=== PATIENT | male | born 1940 | race Caucasian/White ===

== ENCOUNTER → 2023-09-15 10:37 | Outpatient (REF) | payer OTHER, MEDICARE, SELFPAY ==
[2023-09-15 11:02] LABS: % Basophils 0.6 % (0-2); % Eosinophils 2.7 % (0-6); % Lymphocytes 11.8 % (20.5-51.1); % Monocytes 8.1 % (1.7-9.3); % Neutrophils 75.8 % (42.2-75.2); Absolute Eosinophils 0.1 10^3/uL (0-0.7); Absolute Immature Granulocytes 0.1 10^3/uL (0-0.05); Absolute Lymphocytes 0.6 10^3/uL (1.2-3.4); Absolute Monocytes 0.4 10^3/uL (0.1-0.6); Absolute Neutrophils 3.9 10^3/uL (1.4-6.5); Hematocrit 25.1 % (39.0-52.0); Hemoglobin 7.9 g/dL (13.0-18.0); Mean Corp Hgb Conc. 31.5 g/dL (33.0-37.0); Mean Corpuscular Volume 92.3 fL (80.0-94.0); Mean Platelet Volume 10.7 fL (7.4-10.4); Nucleated Red Blood Cells % 0 % (-); Platelet Count 164 10^3/uL (130-400); Red Blood Cell Count 2.72 10^6/uL (4.70-6.10); Red Cell Dist. Width 16.7 % (11.5-14.5); White Blood Cell Count 5.2 10^3/uL (4.8-10.8)
[2023-09-15 11:16] LABS: INR 2.14; PT 24.1 Sec (11.4-14.6)
[2023-09-15 12:36] LABS: Blood Urea Nitrogen 47 mg/dl (9-20); Calcium 8.8 mg/dl (8.4-10.2); Carbon Dioxide 26 mmol/L (22-30); Chloride 102 mmol/L (98-107); Glucose 94 mg/dl (70-99); Potassium 3.9 mmol/L (3.5-5.1); Sodium 137 mmol/L (135-145); eGFR 23.43
== END ==
LOC: OLABP 10:37
PROVIDERS: ATTENDING PHYSICIAN Family Medicine
DX: J96.01 Acute respiratory failure with hypoxia (principal); I50.33 Acute on chronic diastolic (congestive) heart failure; J81.1 Chronic pulmonary edema; B95.2 Enterococcus as the cause of diseases classified elsewhere; I48.21 Permanent atrial fibrillation; N17.9 Acute kidney failure, unspecified; N18.4 Chronic kidney disease, stage 4 (severe); D64.9 Anemia, unspecified; J44.9 Chronic obstructive pulmonary disease, unspecified
CPT/HCPCS: 36415; 80048; 85025; 85610

== ENCOUNTER → 2023-09-17 10:04 | Outpatient (REF) | payer OTHER, MEDICARE, SELFPAY ==
[2023-09-17 10:42] LABS: % Basophils 0.7 % (0-2); % Eosinophils 1.8 % (0-6); % Immature Granulocytes 0.7 % (0-0.5); % Lymphocytes 12.6 % (20.5-51.1); % Monocytes 7.3 % (1.7-9.3); % Neutrophils 76.9 % (42.2-75.2); Absolute Eosinophils 0.1 10^3/uL (0-0.7); Absolute Lymphocytes 0.7 10^3/uL (1.2-3.4); Absolute Monocytes 0.4 10^3/uL (0.1-0.6); Absolute Neutrophils 4.4 10^3/uL (1.4-6.5); Hematocrit 26.9 % (39.0-52.0); Hemoglobin 8.4 g/dL (13.0-18.0); INR 2.16; Mean Corp Hgb Conc. 31.2 g/dL (33.0-37.0); Mean Corpuscular Hgb 29.4 pg (27.0-31.0); Mean Corpuscular Volume 94.1 fL (80.0-94.0); Mean Platelet Volume 10.7 fL (7.4-10.4); Nucleated Red Blood Cells % 0 % (-); Platelet Count 174 10^3/uL (130-400); Red Blood Cell Count 2.86 10^6/uL (4.70-6.10); White Blood Cell Count 5.7 10^3/uL (4.8-10.8)
[2023-09-17 10:56] LABS: Blood Urea Nitrogen 47 mg/dl (9-20); Calcium 8.9 mg/dl (8.4-10.2); Carbon Dioxide 24 mmol/L (22-30); Chloride 104 mmol/L (98-107); Glucose 102 mg/dl (70-99); Potassium 4.2 mmol/L (3.5-5.1); Sodium 141 mmol/L (135-145); eGFR 19.74
== END ==
LOC: OLABP 10:04
PROVIDERS: ATTENDING PHYSICIAN Family Medicine
DX: J96.01 Acute respiratory failure with hypoxia (principal); I50.33 Acute on chronic diastolic (congestive) heart failure; J81.1 Chronic pulmonary edema; B95.2 Enterococcus as the cause of diseases classified elsewhere; I48.21 Permanent atrial fibrillation; N17.9 Acute kidney failure, unspecified; N18.4 Chronic kidney disease, stage 4 (severe); D64.9 Anemia, unspecified; J44.9 Chronic obstructive pulmonary disease, unspecified
CPT/HCPCS: 36415; 80048; 85025; 85610

== ENCOUNTER → 2023-09-20 12:09 | Outpatient (REF) | payer OTHER, MEDICARE, SELFPAY ==
[2023-09-20 13:01] LABS: % Eosinophils 2.2 % (0-6); % Immature Granulocytes 0.8 % (0-0.5); % Lymphocytes 14.4 % (20.5-51.1); % Monocytes 8.9 % (1.7-9.3); % Neutrophils 72.7 % (42.2-75.2); Absolute Basophils 0.1 10^3/uL (0-0.2); Absolute Eosinophils 0.1 10^3/uL (0-0.7); Absolute Lymphocytes 0.7 10^3/uL (1.2-3.4); Absolute Monocytes 0.5 10^3/uL (0.1-0.6); Absolute Neutrophils 3.7 10^3/uL (1.4-6.5); Hemoglobin 8.3 g/dL (13.0-18.0); Mean Corp Hgb Conc. 30.7 g/dL (33.0-37.0); Mean Corpuscular Hgb 28.8 pg (27.0-31.0); Mean Corpuscular Volume 93.8 fL (80.0-94.0); Mean Platelet Volume 10.2 fL (7.4-10.4); Nucleated Red Blood Cells % 0 % (-); Platelet Count 196 10^3/uL (130-400); Red Blood Cell Count 2.88 10^6/uL (4.70-6.10); Red Cell Dist. Width 17.4 % (11.5-14.5); White Blood Cell Count 5.1 10^3/uL (4.8-10.8)
[2023-09-20 13:04] LABS: INR 1.75; PT 20.3 Sec (11.4-14.6)
[2023-09-20 13:10] LABS: ALT (SGPT) 14 U/L (0-50); AST (SGOT) 18 U/L (17-59); Albumin 3.2 g/dl (3.5-5.0); Alkaline Phosphatase 60 U/L (38-126); Blood Urea Nitrogen 41 mg/dl (9-20); Calcium 8.9 mg/dl (8.4-10.2); Carbon Dioxide 23 mmol/L (22-30); Chloride 105 mmol/L (98-107); Glucose 92 mg/dl (70-99); Potassium 4.8 mmol/L (3.5-5.1); Sodium 139 mmol/L (135-145); Total Bilirubin 0.7 mg/dl (0.2-1.3); Total Protein 5.6 g/dl (6.3-8.2); eGFR 19.74
== END ==
LOC: OLABP 12:09
PROVIDERS: ATTENDING PHYSICIAN Family Medicine
DX: I48.21 Permanent atrial fibrillation (principal); N17.9 Acute kidney failure, unspecified; I50.33 Acute on chronic diastolic (congestive) heart failure; J96.01 Acute respiratory failure with hypoxia; N18.4 Chronic kidney disease, stage 4 (severe); D64.9 Anemia, unspecified; J44.9 Chronic obstructive pulmonary disease, unspecified
CPT/HCPCS: 36415; 80053; 85025; 85610

== ENCOUNTER → 2023-09-22 09:40 | Outpatient (REF) | payer OTHER, MEDICARE, SELFPAY ==
[2023-09-22 10:08] LABS: INR 2.33; PT 25.8 Sec (11.4-14.6)
== END ==
LOC: OLABP 09:40
PROVIDERS: ATTENDING PHYSICIAN Family Medicine
DX: J96.01 Acute respiratory failure with hypoxia (principal); I50.33 Acute on chronic diastolic (congestive) heart failure; J81.1 Chronic pulmonary edema; B95.2 Enterococcus as the cause of diseases classified elsewhere; I48.21 Permanent atrial fibrillation; N17.9 Acute kidney failure, unspecified; N18.4 Chronic kidney disease, stage 4 (severe); D64.9 Anemia, unspecified; J44.9 Chronic obstructive pulmonary disease, unspecified
CPT/HCPCS: 36415; 85610

== ENCOUNTER → 2023-09-24 12:04 | Outpatient (REF) | payer OTHER, MEDICARE, SELFPAY ==
[2023-09-24 12:51] LABS: INR 3.07; PT 31.7 Sec (11.4-14.6)
== END ==
LOC: OLABP 12:04
PROVIDERS: ATTENDING PHYSICIAN Family Medicine
DX: J96.01 Acute respiratory failure with hypoxia (principal); I50.33 Acute on chronic diastolic (congestive) heart failure; J81.1 Chronic pulmonary edema; B95.2 Enterococcus as the cause of diseases classified elsewhere; I48.21 Permanent atrial fibrillation; N17.9 Acute kidney failure, unspecified; N18.4 Chronic kidney disease, stage 4 (severe); D64.9 Anemia, unspecified; J44.9 Chronic obstructive pulmonary disease, unspecified
CPT/HCPCS: 36415; 85610

== ENCOUNTER → 2023-09-27 11:58 | Outpatient (REF) | payer OTHER, MEDICARE, SELFPAY ==
[2023-09-27 12:34] LABS: INR 3.48
[2023-09-27 12:52] LABS: % Basophils 1.3 % (0-2); % Eosinophils 1.7 % (0-6); % Immature Granulocytes 0.8 % (0-0.5); % Lymphocytes 15.3 % (20.5-51.1); % Neutrophils 70.9 % (42.2-75.2); Absolute Basophils 0.1 10^3/uL (0-0.2); Absolute Eosinophils 0.1 10^3/uL (0-0.7); Absolute Lymphocytes 0.8 10^3/uL (1.2-3.4); Absolute Monocytes 0.5 10^3/uL (0.1-0.6); Absolute Neutrophils 3.8 10^3/uL (1.4-6.5); Hematocrit 27.7 % (39.0-52.0); Hemoglobin 8.5 g/dL (13.0-18.0); Mean Corp Hgb Conc. 30.7 g/dL (33.0-37.0); Mean Corpuscular Hgb 29.4 pg (27.0-31.0); Mean Corpuscular Volume 95.8 fL (80.0-94.0); Mean Platelet Volume 10.5 fL (7.4-10.4); Nucleated Red Blood Cells % 0 % (-); Platelet Count 202 10^3/uL (130-400); Red Blood Cell Count 2.89 10^6/uL (4.70-6.10); Red Cell Dist. Width 16.8 % (11.5-14.5); White Blood Cell Count 5.3 10^3/uL (4.8-10.8)
[2023-09-27 12:55] LABS: ALT (SGPT) 15 U/L (0-50); AST (SGOT) 21 U/L (17-59); Albumin 3.3 g/dl (3.5-5.0); Alkaline Phosphatase 63 U/L (38-126); Blood Urea Nitrogen 30 mg/dl (9-20); Calcium 8.5 mg/dl (8.4-10.2); Carbon Dioxide 23 mmol/L (22-30); Chloride 109 mmol/L (98-107); Glucose 82 mg/dl (70-99); Potassium 4.4 mmol/L (3.5-5.1); Sodium 139 mmol/L (135-145); Total Bilirubin 0.5 mg/dl (0.2-1.3); Total Protein 5.8 g/dl (6.3-8.2)
== END ==
LOC: OLABP 11:58
PROVIDERS: ATTENDING PHYSICIAN Family Medicine
DX: J96.01 Acute respiratory failure with hypoxia (principal); I50.33 Acute on chronic diastolic (congestive) heart failure; J81.1 Chronic pulmonary edema; B95.2 Enterococcus as the cause of diseases classified elsewhere; I48.21 Permanent atrial fibrillation; N17.9 Acute kidney failure, unspecified; N18.4 Chronic kidney disease, stage 4 (severe); D64.9 Anemia, unspecified; J44.9 Chronic obstructive pulmonary disease, unspecified
CPT/HCPCS: 36415; 80053; 85025; 85610

== ENCOUNTER → 2023-09-30 11:07 | Outpatient (REF) | payer OTHER, MEDICARE, SELFPAY ==
[2023-09-30 11:32] LABS: PT 27.3 Sec (11.4-14.6)
== END ==
LOC: OLABP 11:07
PROVIDERS: ATTENDING PHYSICIAN Family Medicine
DX: J96.01 Acute respiratory failure with hypoxia (principal); I50.33 Acute on chronic diastolic (congestive) heart failure; J81.1 Chronic pulmonary edema; B95.2 Enterococcus as the cause of diseases classified elsewhere; I48.21 Permanent atrial fibrillation; N17.9 Acute kidney failure, unspecified; N18.4 Chronic kidney disease, stage 4 (severe); D64.9 Anemia, unspecified; J44.9 Chronic obstructive pulmonary disease, unspecified
CPT/HCPCS: 36415; 85610

== ENCOUNTER → 2023-10-04 09:07 | Outpatient (REF) | payer OTHER, MEDICARE, SELFPAY ==
[2023-10-04 10:01] LABS: ALT (SGPT) 13 U/L (0-50); AST (SGOT) 19 U/L (17-59); Albumin 3.3 g/dl (3.5-5.0); Alkaline Phosphatase 59 U/L (38-126); Blood Urea Nitrogen 32 mg/dl (9-20); Carbon Dioxide 26 mmol/L (22-30); Chloride 105 mmol/L (98-107); Glucose 93 mg/dl (70-99); Potassium 4.1 mmol/L (3.5-5.1); Sodium 141 mmol/L (135-145); Total Bilirubin 0.6 mg/dl (0.2-1.3); Total Protein 5.8 g/dl (6.3-8.2); eGFR 20.55
[2023-10-04 10:08] LABS: % Basophils 1.3 % (0-2); % Eosinophils 0.8 % (0-6); % Immature Granulocytes 0.8 % (0-0.5); % Lymphocytes 14.6 % (20.5-51.1); % Neutrophils 72.5 % (42.2-75.2); Absolute Basophils 0.1 10^3/uL (0-0.2); Absolute Lymphocytes 0.8 10^3/uL (1.2-3.4); Absolute Monocytes 0.5 10^3/uL (0.1-0.6); Absolute Neutrophils 3.8 10^3/uL (1.4-6.5); Hemoglobin 9.2 g/dL (13.0-18.0); Mean Corp Hgb Conc. 30.7 g/dL (33.0-37.0); Mean Corpuscular Hgb 28.7 pg (27.0-31.0); Mean Corpuscular Volume 93.5 fL (80.0-94.0); Mean Platelet Volume 10.2 fL (7.4-10.4); Nucleated Red Blood Cells % 0 % (-); Platelet Count 200 10^3/uL (130-400); Red Blood Cell Count 3.21 10^6/uL (4.70-6.10); Red Cell Dist. Width 16.3 % (11.5-14.5); White Blood Cell Count 5.2 10^3/uL (4.8-10.8)
[2023-10-04 10:24] LABS: INR 2.23; PT 24.6 Sec (11.4-14.6)
== END ==
LOC: OLABP 09:07
PROVIDERS: ATTENDING PHYSICIAN Family Medicine
DX: J96.01 Acute respiratory failure with hypoxia (principal); I50.33 Acute on chronic diastolic (congestive) heart failure; J81.1 Chronic pulmonary edema; B95.2 Enterococcus as the cause of diseases classified elsewhere; I48.21 Permanent atrial fibrillation; N17.9 Acute kidney failure, unspecified; N18.4 Chronic kidney disease, stage 4 (severe); D64.9 Anemia, unspecified; J44.9 Chronic obstructive pulmonary disease, unspecified
CPT/HCPCS: 36415; 80053; 85025; 85610

== ENCOUNTER → 2023-10-12 11:00 | Outpatient (REF) | payer MEDICARE, SELFPAY ==
[2023-10-12 19:23] LABS: % Basophils 0.5 % (0-2); % Eosinophils 0.2 % (0-6); % Immature Granulocytes 0.8 % (0-0.5); % Lymphocytes 4.8 % (20.5-51.1); % Monocytes 5.6 % (1.7-9.3); % Neutrophils 88.1 % (42.2-75.2); Absolute Basophils 0.1 10^3/uL (0-0.2); Absolute Immature Granulocytes 0.1 10^3/uL (0-0.05); Absolute Lymphocytes 0.6 10^3/uL (1.2-3.4); Absolute Monocytes 0.7 10^3/uL (0.1-0.6); Absolute Neutrophils 11.2 10^3/uL (1.4-6.5); Hematocrit 34.7 % (39.0-52.0); Hemoglobin 10.9 g/dL (13.0-18.0); Mean Corp Hgb Conc. 31.4 g/dL (33.0-37.0); Mean Corpuscular Hgb 28.5 pg (27.0-31.0); Mean Corpuscular Volume 90.6 fL (80.0-94.0); Mean Platelet Volume 10.3 fL (7.4-10.4); Nucleated Red Blood Cells % 0 % (-); Platelet Count 266 10^3/uL (130-400); Red Blood Cell Count 3.83 10^6/uL (4.70-6.10); White Blood Cell Count 12.7 10^3/uL (4.8-10.8)
[2023-10-12 19:34] LABS: INR 1.57; PT 18.9 Sec (11.4-14.6)
[2023-10-12 19:44] LABS: Intact PTH 86.6 pg/ml (13.6-85.8)
[2023-10-12 19:45] LABS: Calcium 9.3 mg/dl (8.4-10.2); Iron 36 ug/dl (49-181); Protein/creatinine Ratio 0.5; Urine Protein 62 mg/dl
[2023-10-12 19:50] LABS: Microalbumin, Random Urine 12.9 mg/dl (0.6-1.7); Microalbumin/creatinine Ratio 100.1 mg/g
[2023-10-12 19:54] LABS: Percent Saturation 11 % (20-50); Total Iron Binding Capacity 327 ug/dl (261-462)
[2023-10-12 20:09] LABS: Urine Albumin 1+ (Neg - Trace); Urine Bilirubin Negative (Negative); Urine Character Clear (Clear); Urine Color Yellow; Urine Glucose Negative (Negative); Urine Ketone Negative (Negative); Urine Leukocyte Trace (Negative); Urine Nitrite Negative (Negative); Urine Occult Blood Negative (Negative); Urine Urobilinogen Negative (Neg - 1+)
[2023-10-12 20:50] LABS: Urine Bacteria Few (Negative); Urine Red Blood Cell 0-2 /HPF (0-2); Urine Yeast Few (Negative)
== END ==
LOC: CLAB 11:00
PROVIDERS: ATTENDING PHYSICIAN Internal Medicine
DX: I48.21 Permanent atrial fibrillation (principal); N18.32 Chronic kidney disease, stage 3b; R26.2 Difficulty in walking, not elsewhere classified; J81.1 Chronic pulmonary edema; I10 Essential (primary) hypertension; D68.69 Other thrombophilia; N18.4 Chronic kidney disease, stage 4 (severe)
CPT/HCPCS: 36415; 81003; 81015; 82043; 82570; 82728; 83540; 83550; 83970; 84156; 85025; 85610

== ENCOUNTER 2023-10-28 23:55 | Inpatient (IN) | payer MEDICARE, SELFPAY ==
[2023-10-27] VITALS (7 sets, daily range): BP systolic 98–140; BP diastolic 50–62; BMI 19.8
--- NOTE | 2023-10-27 18:19 | ED.GENMED ---
History of Present Illness
General
Chief Complaint: Breathing Problem
Source: patient
Exam Limitations: none
Time Seen by Provider: 10/27/23 17:58
Travel History
Have you had any contact with someone who has COVID-19?: No
Do you have any symptoms of coronavirus? Fever > 100 degrees, chills, cough, shortness of breath, sore throat, loss of taste or smell, muscle aches, or headache?: No
History of Present Illness
History of Present Illness:
This is a 83 year old male that is brought in by family with c/o Low pulse ox. Family states that he went to the PCP office and in the waiting room they tested his Pulse ox and it was 87% on room air. States that the PCP would not see the patient
and told him to come to the ER. State that he was just discharged from [facility] on Oct 04. State that he is always SOB and now he has not will to live. Patient states that he wants Hospice care. States that he is normally round 87%-92% on room
air. States that he is SOB and has diarrhea. Family states that he is unable to cook for himself. . Denies any fever, chills, cehst pain, abd pain, nausea, vomiting, headache, dizziness, urinary burning.
Past History
Past History
ED Past Medical History: Arrthythmia, CAD, Cancer (basal cell skin cancer), CHF, COPD, CVA (Denies weakness), GERD, HTN and Other (Endocarditis, Ulcers)
ED Past Surgical History: Cardiac (Pacemaker, cardiac valve surgery, CABG X 3), Cholecystectomy and Tonsilectomy
Social History
Tobacco: Former smoker
Alcohol: None
Drug: None
Personal:
Living: alone
Employment: Other
Family History
Family History: Other
Review of Systems
Review of Systems
All Other Systems: ROS reviewed and negative except as documented in HPI and ROS
Constitutional: Reports no symptoms; Denies fever or chills
EENT: Reports no symptoms
Respiratory: Reports trouble breathing; Denies cough
Cardiac: Reports no symptoms; Denies chest pain
ABD/GI: Reports diarrhea; Denies abdominal pain, nausea or vomiting
: Reports no symptoms; Denies dysuria, frequency or urgency
Musculoskeletal: Reports no symptoms
Skin: Reports no symptoms
Neurological: Reports no symptoms; Denies dizzy or headache
Psychiatric: Reports no symptoms
Phy Exam
General Physical Exam
General Presentation: mild distress
General age: appears stated age
General Skin: warm and dry
General Habitus: elderly
General Mental: alert
General Hydration: dry mucous membranes
ENT Exam
ENT Exam: TM's normal, pharynx normal and neck supple
Eye Exam
Eye Exam: EOMI
Cardiovascular Exam
Cardiovascular Exam: regular rate/rhythm, no edema and normal peripheral pulses
Pulmonary Exam
Pulmonary Exam: no respiratory distress, no rales, chest non tender, no crackles, no rhonchi, no wheezing, no cough and decreased breath sounds (at bases)
Gastrointestinal Exam
Gastrointestinal Exam: normal bowel sounds, non tender, soft, no organomegaly, no pulsatile mass and non distended
Musculoskeletal Exam
Musculoskeletal Exam: full ROM and no edema
Skin Exam
Skin Exam: normal color, warm/dry, no rash and no petechia
Psychiatric Exam
Psychiatric Exam: normal mood/affect
Scores
Heart Failure Risk
Heart Failure Risk Score: Yes
History of Stroke or TIA: Yes
History of intubation for respiratory distress: No
Heart rate on ED arrival >/= 110: No
SaO2 <90% on arrival on room air: Yes
HR >/=110 during 3min walk test (or too ill to perform test): Yes
ECG has acute ischemic changes: No
Urea >/=12mmol/L (BUN 33.6mg/dL): Yes
Serum CO2>/=35mmol/L: No
Troponin I or T elevated to NE Level (0.4mg/dL): Yes
NT-proBNP >/=5,000ng/L (5,000pg/ml): Yes
HF Risk Score: 8
Admission Status: VERY HIGH RISK 81.2% Consider admission to hospital
Course
Orders/Labs/Results
Orders:
Orders
10/27/23 18:18
Case Management Consult ONCE
Case Management Consult: Hospice
Hospice: Evaluation and treat
CR Chest - 2 Views Urgent
Comment:
Reason For Exam: SOB
10/27/23 18:25
Complete Blood Count/With Diff Urgent
Comprehensive Metabolic Panel Urgent
NT-proBNP Urgent
Troponin I Urgent
10/27/23 18:30
Electrocardiogram (*1) Urgent
Reason for Study: Shortness of Breath
EKG- Treatment ONCE
10/27/23 18:38
Prothrombin Time Urgent
Abnormal Lab Results
10/27/23 10/27/23
18:25 18:38
WBC 19.4 H 10^3/uL
(4.8-10.8)
RBC 4.25 L 10^6/uL
(4.70-6.10)
Hgb 11.7 L g/dL
(13.0-18.0)
Hct 37.1 L %
(39.0-52.0)
MCHC 31.5 L g/dL
(33.0-37.0)
RDW 16.0 H %
(11.5-14.5)
Abs Immat Gran (auto) 0.6 H 10^3/uL
(0-0.05)
Absolute Neuts (auto) 16.7 H 10^3/uL
(1.4-6.5)
Absolute Monos (auto) 0.7 H 10^3/uL
(0.1-0.6)
Immature Gran % 3.3 H %
(0-0.5)
Neutrophils % 86.2 H %
(42.2-75.2)
Lymphocytes % 6.1 L %
(20.5-51.1)
PT 26.5 H Sec
(11.4-14.6)
BUN 78 H mg/dl
(9-20)
Creatinine 3.7 H mg/dL
(0.7-1.3)
Glucose 154 H mg/dl
(70-99)
Calcium 10.4 H mg/dl
(8.4-10.2)
Troponin I 0.173 H* ng/ml
10/27/23 18:25
10/27/23 18:25
Leukocytosis, H/H slightly low. Chronic renal failure (told stage 4 kidney disease) Glucose nonfasting. Calcium slightly elevated. Troponin 0.173 which is consistent with prior labs. PT 26.5 with INR 2.40, Pro-BNP 10,600
Vital Signs
Initial and Last Documented VS:
Initial Vital Signs
Temp Pulse Resp BP Pulse Ox
97.0 F 77 18 120/55 89
10/27/23 16:04 10/27/23 16:04 10/27/23 16:04 10/27/23 16:04 10/27/23 16:04
Last Documented Vital Signs
Temp Pulse Resp BP Pulse Ox
97.0 F 77 18 120/61 95
10/27/23 16:04 10/27/23 16:04 10/27/23 16:04 10/27/23 20:06 10/27/23 20:06
MDM/Problems Addressed
Differential Diagnosis Includes:
CHF, COPD,
MDM/Problems Addressed:
This is a 83 year old male that comes in from the PCP office with c/o SOB. States that he would like to be put on Hospice. Family state that he was discharged from [facility] on Oct 04. States that he has been SOB and he doesn't have the will to
live. Patient is requesting Hospice. Patient went to the PCP office today and his pulse ox in the Waiting room was 87% so they would not see patient and told him to come to the ER.
Will get labs, chest x-ray and consulted Case Management to start the Hospice process.
Chronic conditions affecting care: CAD and COPD
Acute Exacerbation and/or Progression of Chronic Illness: CAD and COPD
*Radiology
Radiology exam reviewed: radiology read reviewed (CHEST- Small bilateral pleural effusions. Parenchymal opacities in the bilateral lung bases may represent atelectasis, pulmonary edema or Pneumonia)
*Pulse Oximetry
Patient hypoxic: yes
*EKG
Interpreted by ED Provider?: Yes
Heart Rate: 70
Rate: normal
Rhythm: ventricular paced
[place]: right axis deviation
*Still Operator Gin Interpretation
Rate: Still Operator Gin- N/A
*Critical Care Note
Total Time (30-74mins, 75-104mins- exclusive of procedures): Not Applicable
ED Attending Note
-
Portions of this chart may have been created with voice recognition software.� Occasional wrong word or��sound alike� substitutions may have occurred due to the inherent limitations of voice recognition software.
Discharge Plan
Departure
Patient Disposition: Admit
Date of Disposition: 10/27/23
Time of Disposition: 21:05
Admit to: Med/Surg
Presentation/result/management discussed w/ accepting MD/DO: Hospitalist
Patient with high blood pressure during this ER visit?: No
Condition: Good
Covid-19: Not Applicable
Discharge Problem:
SOB (shortness of breath), Pleural effusion, bilateral, Pneumonia
Prescriptions:
No Action
allopurinol 100 mg Tablet
100 mg PO Q48H Qty: 0 0RF
allopurinol 100 mg Tablet
200 mg PO Q48H Qty: 0 0RF
B-complex with vitamin C Tablet
1 tab PO QPM Qty: 14 0RF
Fiber-Tabs 625 mg Tablet
625 mg PO BID Qty: 0 0RF
multivitamin with folic acid [Tab-A-Lawrence] 400 mcg Tablet
1 tab PO DAILY Qty: 0 0RF
pantoprazole 40 mg Tablet,Delayed Release (Dr/Ec)
40 mg PO BID Qty: 0 0RF
cholecalciferol (vitamin D3) 25 mcg (1,000 unit) Tablet
1,000 unit PO DAILY Qty: 0 0RF
isosorbide mononitrate 30 mg Tablet Extended Release 24 Hr
30 mg PO DAILY Qty: 0 0RF
warfarin 2.5 mg tablet
2.5 mg PO Q48H
warfarin 2.5 mg tablet
5 mg PO Q48H
hydralazine 10 mg tablet
10 mg PO TID
torsemide 20 mg tablet
20 mg PO DAILY
potassium chloride 20 mEq tablet,ER particles/crystals
20 meq PO BID@0800,1600
famotidine 20 mg tablet
20 mg PO HS PRN (Reason: gi issues)
ferrous sulfate [FeroSul] 325 mg (65 mg iron) tablet
325 mg PO DAILY
Referrals:
UNKNOWN - PT DOES,NOT KNOW [Unknown Provider] -
Interventions
Interventions:
*Risk Screen - Suicide Last Done: 10/27/23 16:04
*General Assessment Last Done: 10/27/23 16:04
*Neglect/Abuse Screening Last Done: 10/27/23 16:04
ED- Fall Risk Assessment Last Done: 10/27/23 18:10
*ED COVID-19 Vaccine History Last Done: 10/27/23 18:10
ED- Cardiac Assessment Last Done: 10/27/23 18:10
ED- Pulmonary Assessment Last Done: 10/27/23 18:10
--- NOTE | 2023-10-27 18:33 | CM ---
CM met with patient and family in room. Patient lives alone in a elevator accessed apartment. Patient was recently released from [facility] and discharged with [facility]N. Patient is requesting hospice evaluation. Patient is agreeable to Hospice referral.
CM sent referral via [facility] and updated account manager via TT.
PCP: Dr. Gloria
PLAN: Hospice evaluation
[2023-10-27 18:37] LABS: % Basophils 0.5 % (0-2); % Eosinophils 0.4 % (0-6); % Immature Granulocytes 3.3 % (0-0.5); % Lymphocytes 6.1 % (20.5-51.1); % Monocytes 3.5 % (1.7-9.3); % Neutrophils 86.2 % (42.2-75.2); Absolute Basophils 0.1 10^3/uL (0-0.2); Absolute Eosinophils 0.1 10^3/uL (0-0.7); Absolute Immature Granulocytes 0.6 10^3/uL (0-0.05); Absolute Lymphocytes 1.2 10^3/uL (1.2-3.4); Absolute Monocytes 0.7 10^3/uL (0.1-0.6); Absolute Neutrophils 16.7 10^3/uL (1.4-6.5); Hematocrit 37.1 % (39.0-52.0); Hemoglobin 11.7 g/dL (13.0-18.0); Mean Corp Hgb Conc. 31.5 g/dL (33.0-37.0); Mean Corpuscular Hgb 27.5 pg (27.0-31.0); Mean Corpuscular Volume 87.3 fL (80.0-94.0); Mean Platelet Volume 9.8 fL (7.4-10.4); Nucleated Red Blood Cells % 0 % (-); Platelet Count 398 10^3/uL (130-400); Red Blood Cell Count 4.25 10^6/uL (4.70-6.10); White Blood Cell Count 19.4 10^3/uL (4.8-10.8)
[2023-10-27 18:46] LABS: ALT (SGPT) 15 U/L (0-50); AST (SGOT) 25 U/L (17-59); Alkaline Phosphatase 92 U/L (38-126); Blood Urea Nitrogen 78 mg/dl (9-20); Calcium 10.4 mg/dl (8.4-10.2); Carbon Dioxide 23 mmol/L (22-30); Chloride 106 mmol/L (98-107); Estimated Creatinine Clearance 13 ml/min; Glucose 154 mg/dl (70-99); Sodium 138 mmol/L (135-145); Total Bilirubin 0.8 mg/dl (0.2-1.3); Total Protein 7.5 g/dl (6.3-8.2); eGFR 15.34
[2023-10-27 18:54] LABS: PT 26.5 Sec (11.4-14.6)
[2023-10-27 19:06] LABS: NT-proBNP 10600 pg/ml; Troponin I 0.173 ng/ml
[2023-10-27] MEDS: MAXIPIME 1000 MG IV (21:14)
[2023-10-27] MEDS: LASIX 20 MG IV (21:24)
--- NOTE | 2023-10-27 21:32 | HPS.HSE ---
Addendum entered and electronically signed by Mabel Barreto MD 10/27/23 22:40:
Checking COVID and influenza.
Original Note:
Family Physician
-
Family Physician: Lc Gloria
Chief Complaint
-
shortness of breath
History of Present Illness
83-year-old male with past medical history of HFpEF, permanent atrial fibrillation with pacemaker, coronary artery disease status post CABG, bioprosthetic AVR, Enterococcus faecalis bacteremia, CKD 4, prediabetes, chronic normocytic anemia,
presenting with low pulse ox. Patient was recently admitted for CHF exacerbation and discharged to [facility]. He has had worsening shortness of breath for the past few weeks. No cough. Patient went to PCP office and pulse ox was 87% on room air.
He was told to come to emergency room. He states he is always short of breath and he does not have the will to live and wants hospice care. He is normally 87 to 92% on room air. No weight gain.
Patient denies any chest pain. He denies any fevers or chills, abdominal pain or nausea or vomiting or headache or dizziness or urinary symptoms. He was constipated and took MiraLAX and then developed some diarrhea which is since resolved. He is
no longer taking MiraLAX. Unsure when his last bowel movement was.
Medical History
Past Medical History
Past Medical History: Reports Other (HFpEF, permanent atrial fibrillation with pacemaker, coronary artery disease status post CABG, bioprosthetic AVR, Enterococcus faecalis bacteremia, CKD 4, prediabetes, chronic normocytic anemia)
Past Surgical History: Reports Other ( Cardiac (Pacemaker, cardiac valve surgery, CABG X 3), Cholecystectomy and Tonsilectomy)
Social History
Tobacco: Former Smoker
Alcohol: Former
Drug: None
Family History
Family History: Not pertinent
Allergies / Home Medications
Allergies reflects when Allergies were last updated in [facility].
Home Medications with original date entered in [facility]
Allergy/Medication List:
Allergies
Allergy/AdvReac Type Severity Reaction Status Date / Time
adhesive tape Allergy Rash Verified 10/27/23 16:03
Home Medications
B-complex with vitamin C 1 tab PO QPM #14 tabs 09/08/23
allopurinol 100 mg tablet 100 mg PO Q48H #0 tabs 09/08/23
allopurinol 100 mg tablet 200 mg PO Q48H #0 tabs 09/08/23
calcium polycarbophil 625 mg tablet (Fiber-Tabs) 625 mg PO BID #0 tabs 09/08/23
cholecalciferol (vitamin D3) 25 mcg (1,000 unit) tablet 1,000 unit PO DAILY #0 tabs 09/08/23
isosorbide mononitrate 30 mg tablet,extended release 24 hr 30 mg PO DAILY #0 tabs 09/08/23
multivitamin with folic acid 400 mcg tablet (Tab-A-Lawrence) 1 tab PO DAILY #0 tabs 09/08/23
pantoprazole 40 mg tablet,delayed release 40 mg PO BID #0 tabs 09/08/23
famotidine 20 mg tablet 20 mg PO HS PRN gi issues 10/27/23
ferrous sulfate 325 mg (65 mg iron) tablet (FeroSul) 325 mg PO DAILY 10/27/23
hydralazine 10 mg tablet 10 mg PO TID 10/27/23
potassium chloride 20 mEq tablet,extended release(part/cryst) 20 meq PO BID@0800,1600 10/27/23
torsemide 20 mg tablet 20 mg PO DAILY 10/27/23
warfarin 2.5 mg tablet 2.5 mg PO Q48H 10/27/23
warfarin 2.5 mg tablet 5 mg PO Q48H 10/27/23
Review of Systems
-
History Source: Patient
A 12 point ROS was completed and negative except as noted: Yes
Constitutional: Reports No Symptoms
EENT: Reports No Symptoms
Respiratory: Reports See HPI
Cardiac: Reports See HPI
Abdomen/GI: Reports No Symptoms
: Reports No Symptoms
Musculoskeletal: Reports No Symptoms
Skin: Reports No Symptoms
Neurological: Reports No Symptoms
Endocrine: Reports No Symptoms
Hematologic/Lymphatic: Reports No Symptoms
Psych: Reports No Symptoms
Physical Exam
Vital Signs
Vital Signs
Temp Pulse Resp BP Pulse Ox
97.0 F 71 18 120/61 95
10/27/23 16:04 10/27/23 21:24 10/27/23 16:04 10/27/23 21:24 10/27/23 21:00
Physical Exam
General: Well Developed, Well Nourished and No Apparent Distress
HEENT: NormoCephalic, Moist mucous membranes and Atraumatic
Respiratory: Clear
Cardiac: S1/S2 and Regular Rhythm; No Murmur or Rub
GI: Soft, Non Tender, Non Distended and Normal Bowel Sounds; No Organomegaly
Rectal: Deferred by Provider
Musculoskeletal: No Clubbing, No Cyanosis and No Edema
Skin: No Rash
Neuro: Nonfocal/grossly intact
Laboratory Results
-
10/27/23 18:25
10/27/23 18:25
Laboratory Results
PT 26.5 Sec (11.4-14.6) H 10/27/23 18:38
INR 2.40 10/27/23 18:38
Total Bilirubin 0.8 mg/dl (0.2-1.3) 10/27/23 18:25
AST 25 U/L (17-59) 10/27/23 18:25
ALT 15 U/L (0-50) 10/27/23 18:25
Alkaline Phosphatase 92 U/L (38-126) 10/27/23 18:25
Troponin I 0.173 ng/ml H* 10/27/23 18:25
Data Reviewed
-
Lab Data: Labs Reviewed by me
Old Records: Reviewed
Impression/Plan
-
IMPRESSION:
PLAN:
# Hypoxic respiratory insufficiency multifactorial secondary to community-acquired pneumonia/acute on chronic HFpEF exacerbation
-See individually below
-Chest x-ray shows small bilateral pleural effusions, parenchymal opacities in the bilateral lung bases which may represent atelectasis, pulm edema or pneumonia
-Case management consulted for hospice
# Possible community-acquired pneumonia
-Leukocytosis
-Check sputum culture
-Ceftriaxone/doxycycline
#Acute on chronic HFpEF exacerbation
-Cardiac BNP of 10,000 from 16,000
-20 IV Lasix given due to systolic blood pressure
-Attempt to diurese further before leaving for hospice
-Check I's and O's, daily weight
-Hold hydralazine
# Chronic nonischemic myocardial injury secondary to hypoxic respiratory insufficiency/heart failure
-Troponin of 0.173 from 0.2 previously in August
JUANA on CKD stage IV
-Presenting 3.7 from 2.9
Permanent atrial fibrillation with pacemaker
-Continue Coumadin
Coronary artery disease status post CABG
-Continue isosorbide mononitrate
History of bioprosthetic AVR
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
History of endocarditis in to
History of Enterococcus bacteremia
Gout
-Continue allopurinol
Prediabetes
Chronic normocytic anemia
-Continue iron supplement
DNR/DNI
DVT prophylaxis�Coumadin
Cardiac diet
--- NOTE | 2023-10-27 23:45 | PTCARENOTE ---
Pt arrived to room 423-01. Pt transferred from stretcher to bed. Pt AAOx3, VSS. Pt on 2L02 96%. Pt c/o no SOB or difficulty breathing. Pt in no sign of acute distress. Pt oriented to room, call dave placed within reach.
[2023-10-28] MEDS: ZITHROMAX INFUSION 250 IV (00:01)
[2023-10-28 00:47] LABS: COVID-19 Antigen Negative (Negative)
[2023-10-28 03:05] VITALS: BP 115/63
[2023-10-28] MEDS: STERILE WATER FOR INJECTION 10 ML IV (05:12)
[2023-10-28] MEDS: ROCEPHIN 1000 MG IV (05:12)
[2023-10-28 06:00] VITALS: BMI 19.4
[2023-10-28] MEDS: IMDUR (EXTENDED RELEASE) 30 MG PO (07:57)
[2023-10-28] MEDS: PROTONIX 40 MG PO (07:57)
[2023-10-28] MEDS: FEOSOL 325 MG PO (07:57)
[2023-10-28] MEDS: FIBERCON 625 MG PO (07:57)
[2023-10-28] MEDS: VITAMIN D3 (cholecalciferol) 25 MCG PO (07:58)
[2023-10-28] MEDS: KCL 20 MEQ PO (07:58)
[2023-10-28] MEDS: ZYLOPRIM 100 MG PO (07:58)
[2023-10-28] MEDS: THERAGRAN 1 TABLET PO (07:58)
[2023-10-28 08:00] VITALS: BP 87/56
[2023-10-28 09:06] LABS: Hematocrit 31.9 % (39.0-52.0); Mean Corp Hgb Conc. 31.3 g/dL (33.0-37.0); Mean Corpuscular Hgb 27.4 pg (27.0-31.0); Mean Corpuscular Volume 87.4 fL (80.0-94.0); Mean Platelet Volume 9.8 fL (7.4-10.4); Platelet Count 323 10^3/uL (130-400); Red Blood Cell Count 3.65 10^6/uL (4.70-6.10); Red Cell Dist. Width 15.9 % (11.5-14.5)
[2023-10-28 09:24] VITALS: BP 101/57
--- NOTE | 2023-10-28 09:37 | HOSPNOTE ---
Hospice meeting today 10:30am. More information to follow.
--- NOTE | 2023-10-28 09:43 | VNURNOTE ---
Patient is current with [facility] since 10/08 w/SN/PT/OT/PROVIDER ENROLLMENT SPECIALIST.
[2023-10-28 09:45] LABS: Blood Urea Nitrogen 78 mg/dl (9-20); Calcium 9.7 mg/dl (8.4-10.2); Carbon Dioxide 25 mmol/L (22-30); Chloride 103 mmol/L (98-107); Estimated Creatinine Clearance 13 ml/min; Glucose 142 mg/dl (70-99); Potassium 4.1 mmol/L (3.5-5.1); Sodium 139 mmol/L (135-145); eGFR 15.86
--- NOTE | 2023-10-28 11:19 | HOSPNOTE ---
Met with daughters, in agreement with hospice care and the philosophy. The plan is to have equipment ordered for delivery tomorrow Saturday 10/28 and then have patient home on Sunday 10/29 and admit onto hospice services. OOH DNR will be needed on
chart. Case management aware of plan and will schedule transport.
[2023-10-28 12:00] VITALS: BP 100/45
--- NOTE | 2023-10-28 12:52 | CM ---
Addendum entered by Alissa De León 10/28/23 13:14:
Unable to pre schedule transport for Wednesday until Wednesday per bus transportation manager.
Transport forms on patients chart.
Addendum entered by Alissa De León 10/28/23 13:13:
Address verified with Hospice nurse.
Original Note:
Spoke with patient bedside.
Patient aware he is for d/c home Wednesday on Hospice services.
Per patient he will be staying with his daughter.
Attempted to contact daughter to verify address given to me by patient.
[facility] form completed.
Outpatient DNR signed by MD and on chart.
Will schedule ambulance transport once address verified.
Plan: home with hospice
[2023-10-28 14:54] VITALS: BP 105/45
[2023-10-28] MEDS: KCL PO (15:55)
--- NOTE | 2023-10-28 15:56 | PTCARENOTE ---
Pt is refusing all meds despite education, pt will be going home on hospice on wednesday. MD aware.
--- NOTE | 2023-10-28 16:35 | W.PN.HOSP.TC ---
Addendum entered and electronically signed by Conrad Small MD 10/28/23 22:12:
Attending Addendum-
I saw and evaluated the patient. I reviewed the resident�s note and agree with findings and plan as documented in the resident�s note. Patient presents with worsening SOB, currently requesting hospice and wanting to be left alone Exam- gen ill
appearing heart RRR lungs diffuse crackles/rales abd soft LE b/l edema
Plan:
# Acute Hypoxemic Respiratory Failure- from volume overload AE HFpEF probable PNA- hospice c/s poor prog patient refusing meds
# ESRD- poor prog, doesnt want dialysis- c/s hospice
Dispo DC wednesday on home hospice
Time spent coordinating care, review of plan of care with resident, review of records, med rec, consults, notes, labs, rads, d/w nursing � 35 mins
Original Note:
Today's Communication/Plan
-
As of right now, continue everything as is. Comfort care measure only.
Case management d/c home Wednesday on Hospice services.
Assessment / Plan
Assessment / Plan
Assesment/Plan
#Hospice Secondary to ESRD
-Will continue comfort measures.
#All other chronic issues, continue meds as it is.
Anticipated Discharge: 24 - 48 hours
Subjective/Interval History
-
83 year old male presented to the hospital due to Low Pulse Ox. At Bedside, Patient reported wanting hospice. Patient said 'He doesn't want to be bothered anymore, and doesn't want treatment'.
Attempted to contact Patient's stepdaughter to discuss plan regarding hospice care, no response.
Objective Data
-
Labs:
Laboratory Results
10/28/23
08:43
WBC 11.0 H
Hgb 10.0 L
Hct 31.9 L
Plt Count 323
Sodium 139
Potassium 4.1
Chloride 103
Carbon Dioxide 25
BUN 78 H
Creatinine 3.6 H
Glucose 142 H
Calcium 9.7
Vital Signs:
Vital Signs
Temp Pulse Resp BP Pulse Ox
97.6 F 73 18 100/45 93
10/28/23 12:00 10/28/23 12:00 10/28/23 12:00 10/28/23 12:00 10/28/23 16:35
I&O
10/27/23 10/28/23 10/29/23
06:59 06:59 06:59
Output Total 300 / 300
Balance -300 / -300
Review of Systems
-
All other systems: Reviewed and negative (except as documented )
Physical Exam
-
General: Appears Chronically Ill
Respiratory: Wheezes
Cardiac: Regular Rhythm and S1/S2
GI: Soft, Nontender and Nondistended
Skin: Warm and Dry
Neuro: Awake, Alert, Oriented and AO x 3
Psych: Calm
Data Reviewed
-
Diagnostic Radiology: Discussed with Physician
Labs: Discussed with Physician
[2023-10-28 16:43] VITALS: BMI 19.4
[2023-10-28] MEDS: PROTONIX PO (20:40)
[2023-10-28] MEDS: FIBERCON PO (20:40)
--- NOTE | 2023-10-28 20:40 | PTCARENOTE ---
Pt refusing all meds. Pt to go home on hospice Wednesday. [place] aware. Pt AAOx3, VSS. Pt on 94%. No signs of acute distress, respirations regular.
[2023-10-28 22:33] VITALS: BP 115/54
[2023-10-29] MEDS: ZITHROMAX INFUSION IV (00:21)
[2023-10-29 06:00] VITALS: BMI 19.4
[2023-10-29] MEDS: ROCEPHIN IV (06:19)
[2023-10-29] MEDS: STERILE WATER FOR INJECTION IV (06:19)
[2023-10-29] MEDS: FEOSOL PO (07:11)
[2023-10-29] MEDS: VITAMIN D3 (cholecalciferol) PO (07:12)
[2023-10-29] MEDS: IMDUR (EXTENDED RELEASE) PO (07:12)
[2023-10-29] MEDS: KCL PO ×2 (07:12→13:35)
[2023-10-29] MEDS: PROTONIX PO ×2 (07:12→20:55)
[2023-10-29] MEDS: FIBERCON PO ×2 (07:12→20:55)
[2023-10-29] MEDS: THERAGRAN PO (07:12)
[2023-10-29 08:00] VITALS: BP 112/57
[2023-10-29 08:37] LABS: Blood Urea Nitrogen 68 mg/dl (9-20); Calcium 9.9 mg/dl (8.4-10.2); Carbon Dioxide 22 mmol/L (22-30); Chloride 104 mmol/L (98-107); Estimated Creatinine Clearance 14 ml/min; Glucose 176 mg/dl (70-99); Potassium 4.4 mmol/L (3.5-5.1); Sodium 138 mmol/L (135-145)
--- NOTE | 2023-10-29 09:50 | W.PN.HOSP.TC ---
Addendum entered and electronically signed by Conrad Small MD 10/29/23 23:20:
Attending Addendum-
I saw and evaluated the patient. I reviewed the resident�s note and agree with findings and plan as documented in the resident�s note. wants to be left alone, refusing any meds Exam- gen ill appearing heart RRR lungs diffuse crackles/rales abd soft
LE b/l edema
Plan:
# Acute Hypoxemic Respiratory Failure- from volume overload - poor prog hospice at home in am
# AE HFpEF probable PNA- hospice at home poor prog patient refusing meds
# ESRD- poor prog, refusing dialysis- hospice at home in am
Dispo DC wednesday on home hospice
Time spent coordinating care, review of plan of care with resident, review of records, med rec, consults, notes, labs, rads, d/w nursing � 36 mins
Original Note:
Today's Communication/Plan
-
DC Wednesday on Home Hospice.
Comfort Measures
Assessment / Plan
Assessment / Plan
Assesment/Plan
#Acute Hypoxemic Respiratory Failure- From fluid overload AE HFpEF probable PNA
-Hospice
-Patient refusing meds
-Will continue comfort measures.
Anticipated Discharge: Within 24 hours
Subjective/Interval History
-
Discussed comfort measures with patient. Patient reports he doesn't want any medication at this time including Pain medication. Attempted to contact patient's daughter today. No response.
Objective Data
-
Labs:
Laboratory Results
10/29/23
07:38
Sodium 138
Potassium 4.4
Chloride 104
Carbon Dioxide 22
BUN 68 H
Creatinine 3.3 H
Glucose 176 H
Calcium 9.9
Vital Signs:
Vital Signs
Temp Pulse Resp BP Pulse Ox
98.5 F 71 18 112/57 95
10/29/23 08:00 10/29/23 08:00 10/29/23 08:00 10/29/23 08:00 10/29/23 08:00
I&O
10/28/23 10/29/23 10/30/23
06:59 06:59 06:59
Intake Total 1440 / 1440
Output Total 300 / 300 650 / 650
Balance -300 / -300 790 / 790
Physical Exam
-
General: Appears Chronically Ill
Respiratory: Rales and Crackles
Cardiac: Regular Rhythm and S1/S2
GI: Soft
Musculoskeletal: Other (b/l edema)
Skin: Warm and Dry
Data Reviewed
-
Labs: Labs Reviewed by me and Discussed with Physician
--- NOTE | 2023-10-29 10:21 | W.HF.CON ---
Heart Failure
- LV Function
Left ventricular function study result: LV Ejection fraction >40%
Ejection Fraction Percentage: 50-55
- ARNI
Patient already on ARNI: No
Heart Failure ARNI Not Indicated: LV Ejection Fraction >/= 40%
- ACEI/ARB
Patient already on ACEI/ARB: No
Heart Failure ACEI/ARB Not Indicated: LV Ejection Fraction > 40%
- Beta Kera
Patient already on Evidence Based Beta Kera: No
Heart Failure Evidence Based Beta Kera Not Indicated: LV Ejection Fraction > 40%
- Mineralocorticord Receptor Antagonist
Patient already on MRA: No
Heart Failure MRA Not Indicated: LV Ejection Fraction > 40%
- SGLT-2 Inhibitor
Patient already on SGLT-2 Inhibitor: No
Heart Failure SGLT-2 Inhibitor Not Indicated: LV Ejection Fraction >40%
- Afib Anticoagulation
Patient already on Anticoagulation for Afib: Yes (pt. refusing all meds at this time will be D/C'd to home hospice on Sat.)
Heart Failure Afib Anticoagulation Contraindication: Comfort Measures Only
- NYHA CHF Classification
NYHA CHF Classification Level: Class III - Symptoms w/ min exertion, interferes w/ nml daily activity
- ACC/AHA Stage
ACC/AHA Stage: Stage C: Symptomatic Heart Failure
[2023-10-29 11:26] VITALS: BP 120/54
[2023-10-29 15:37] VITALS: BP 122/59
[2023-10-29 19:15] VITALS: BP 111/48
[2023-10-29 23:05] VITALS: BP 122/56
[2023-10-30] MEDS: ZITHROMAX INFUSION IV (00:50)
--- NOTE | 2023-10-30 03:08 | PTCARENOTE ---
Pt refusing all meds. Pt to go home on hospice Wednesday. Pt AAXO3. VSS. 0.5 L O2 96%. No signs of acute distress. respirations regular. Plan of care ongoing.
[2023-10-30 06:00] VITALS: BMI 19.9
[2023-10-30] MEDS: STERILE WATER FOR INJECTION IV (06:32)
[2023-10-30] MEDS: ROCEPHIN IV (06:32)
[2023-10-30 08:12] VITALS: BP 111/50
[2023-10-30] MEDS: FIBERCON PO (08:13)
[2023-10-30] MEDS: THERAGRAN PO (08:13)
[2023-10-30] MEDS: KCL PO (08:13)
[2023-10-30] MEDS: IMDUR (EXTENDED RELEASE) PO (08:13)
[2023-10-30] MEDS: VITAMIN D3 (cholecalciferol) PO (08:13)
[2023-10-30] MEDS: PROTONIX PO (08:13)
[2023-10-30] MEDS: FEOSOL PO (08:13)
[2023-10-30] MEDS: ZYLOPRIM PO (08:14)
--- NOTE | 2023-10-30 08:23 | W.PN.HOSP.TC ---
Today's Communication/Plan
-
d/c to home with hospice
Assessment / Plan
Assessment / Plan
pt is an 83 year old male
Acute Hypoxemic Respiratory Failure- From fluid overload AE HFpEF probable PNA
- for d/c today to home Hospice
-Patient refusing meds
-Will continue comfort measures.
Anticipated Discharge: Today
Subjective/Interval History
-
Date of Service: October 30, 2023
pt ready for d/c on hospice
Objective Data
-
Vital Signs:
max temp for 24 hours
10/29/23
15:37
Temp 97.8 F
Vital Signs
Temp Pulse Resp BP Pulse Ox
98.1 F 71 16 111/50 96
10/30/23 08:12 10/30/23 08:12 10/30/23 08:12 10/30/23 08:12 10/30/23 08:12
I&O
10/29/23 10/30/23 10/31/23
06:59 06:59 06:59
Intake Total 1440 / 1440 1500 / 1500
Output Total 650 / 650 500 / 500
Balance 790 / 790 1000 / 1000
Review of Systems
-
All other systems: Reviewed and negative
Physical Exam
-
General: Well Developed, Well Nourished and No Apparent Distress
HEENT: Normocephalic and Atraumatic
Respiratory: Clear to Auscultation; Negative Wheezes or Rhonchi
Cardiac: Regular Rhythm and S1/S2; Negative Murmur
GI: Soft, Nontender, Nondistended and Normal Bowel Sounds
Musculoskeletal: No Clubbing, No Cyanosis and No Edema
Skin: Warm
Neuro: Awake
--- NOTE | 2023-10-30 08:32 | PTCARENOTE ---
Patient received awake and alert, oriented to person and place. Refused all meds- hospitalist aware . Agreed to drink juice as refused mouth care. Incontinent of urine, turned and cleaned with assistance. Denied any pain. Call dave in reach.
Discharge instructions reviewed with patient told me 'I'm not going to take any pills'. For d/c ambulance [id number] am.
--- NOTE | 2023-10-30 08:36 | CM ---
fast food manager reviewed patient's chart and patient is for discharge to home today on [facility], OOH DNR has been completed, fast food manager spoke with patient's daughter Lazara and along with her sister they will assist with patient's care at 43
Michelle Re[place] in [place], Patient has all equipment delivered to home.
Plan; Home today by ambulance on [facility].
--- NOTE | 2023-11-01 13:29 | W.DCSUMMARY ---
Addendum entered and electronically signed by Conrad Small MD 11/01/23 23:44:
read reviewed and agree.
Linden Small MD
Original Note:
Documented by User: Fred Potts MD, Resident 11/01/23 13:50
Discharge Summary
Discharge Data
Date of Admission: 10/28/23
Date of Discharge: 11/01/23
-
Pending Results: No
Hospital Course
DISCHARGE DIAGNOSIS:
1. Acute Hypoxemic Respiratory Failure
2. Acute HFpEF
3. End Stage Renal Disease.
BRIEF HOSPITAL COURSE: This is an 83-year-old male with past medical history of HFpEF, permanent atrial fibrillation with pacemaker, coronary artery disease status post CABG, bioprosthetic AVR, Enterococcus faecalis bacteremia, CKD 4, prediabetes,
chronic normocytic anemia, who presented to ED with Low Pulse Ox. Patient was recently admitted for CHF exacerbation and discharged to [facility]. At [facility] he continued to have worsening shortness of Breath. He was evaluated at the PCP's office
and was noted to have a pulse Ox 87% on room air. Patient was sent to the ED. Patient reports he is always short of breath and does not have the will to live, hence wants Hospice Care. Patient denies chest pain, fevers, chills, abdominal pain,
nausea, vomiting, headache, dizziness, urinary symptoms. Evaluation with a Chest Xray showed small bilateral pleural effusions, parenchymal opacities in the bilateral lung bases which may represent atelectasis, pulmonary edema or pneumonia.
Patient's cardiac BNP was 10,000. Patient was diuresed with Lasix. During the course of his hospital stay, Patient requested to be left alone, refusing all medication. Case management was consulted for hospice, and Comfort care measures were done
until discharge. Patient was discharged Home with Hospice services.
On the day of discharge Temperature 98.1, BP 111/50. Pulse: 71, O2 Sat 96% on 0.5 L oxygen.
Discharge Plan
-
Patient Disposition: Home with Hospice
Discharge Diagnosis/Procedures: Acute Hypoxemic Respiratory Failure, ESRD
Condition: Fair
Diet: As tolerated
Activity: As tolerated
Driving Restrictions: No driving
Bathing Restrictions: None
Other Services: Hospice
Instructions: *PCP/Other [facility] Heart Failure Instructions
Referrals:
Lc Gloria I., DO [Family Provider] - in less than 1 week
Additional Discharge Medication Instructions: Your hospice team will determine which medications will be continued and which will not. For now all home medications were continued.
Prescriptions:
Continued
warfarin 2.5 mg tablet
2.5 mg PO Q48H
warfarin 2.5 mg tablet
5 mg PO Q48H
hydralazine 10 mg tablet
10 mg PO TID
torsemide 20 mg tablet
20 mg PO DAILY
potassium chloride 20 mEq tablet,ER particles/crystals
20 meq PO BID@0800,1600
famotidine 20 mg tablet
20 mg PO HS PRN (Reason: gi issues)
ferrous sulfate [FeroSul] 325 mg (65 mg iron) tablet
325 mg PO DAILY
isosorbide mononitrate 30 mg Tablet Extended Release 24 Hr
30 mg PO DAILY Qty: 0 0RF
allopurinol 100 mg Tablet
100 mg PO Q48H Qty: 0 0RF
allopurinol 100 mg Tablet
200 mg PO Q48H Qty: 0 0RF
pantoprazole 40 mg Tablet,Delayed Release (Dr/Ec)
40 mg PO BID Qty: 0 0RF
Fiber-Tabs 625 mg Tablet
625 mg PO BID Qty: 0 0RF
B-complex with vitamin C Tablet
1 tab PO QPM Qty: 14 0RF
cholecalciferol (vitamin D3) 25 mcg (1,000 unit) Tablet
1,000 unit PO DAILY Qty: 0 0RF
multivitamin with folic acid [Tab-A-Lawrence] 400 mcg Tablet
1 tab PO DAILY Qty: 0 0RF
Discharge Orders:
Discharge Patient (As Directed); Ordered 10/30/23
Ordered By: Agnes Miller
Discharge Date and Time
Discharge Date/Time: 10/30/23 11:26

Documented by User: Conrad Small MD 11/01/23 23:43
Discharge Summary
Discharge Data
Date of Admission: 10/28/23
Date of Discharge: 11/01/23
Discharge Plan
-
Patient Disposition: Home with Hospice
Discharge Diagnosis/Procedures: Acute Hypoxemic Respiratory Failure, ESRD
Condition: Fair
Diet: As tolerated
Activity: As tolerated
Driving Restrictions: No driving
Bathing Restrictions: None
Other Services: Hospice
Instructions: *PCP/Other [facility] Heart Failure Instructions
Referrals:
Lc Gloria I., DO [Family Provider] - in less than 1 week
Additional Discharge Medication Instructions: Your hospice team will determine which medications will be continued and which will not. For now all home medications were continued.
Prescriptions:
Continued
warfarin 2.5 mg tablet
2.5 mg PO Q48H
warfarin 2.5 mg tablet
5 mg PO Q48H
hydralazine 10 mg tablet
10 mg PO TID
torsemide 20 mg tablet
20 mg PO DAILY
potassium chloride 20 mEq tablet,ER particles/crystals
20 meq PO BID@0800,1600
famotidine 20 mg tablet
20 mg PO HS PRN (Reason: gi issues)
ferrous sulfate [FeroSul] 325 mg (65 mg iron) tablet
325 mg PO DAILY
isosorbide mononitrate 30 mg Tablet Extended Release 24 Hr
30 mg PO DAILY Qty: 0 0RF
allopurinol 100 mg Tablet
100 mg PO Q48H Qty: 0 0RF
allopurinol 100 mg Tablet
200 mg PO Q48H Qty: 0 0RF
pantoprazole 40 mg Tablet,Delayed Release (Dr/Ec)
40 mg PO BID Qty: 0 0RF
Fiber-Tabs 625 mg Tablet
625 mg PO BID Qty: 0 0RF
B-complex with vitamin C Tablet
1 tab PO QPM Qty: 14 0RF
cholecalciferol (vitamin D3) 25 mcg (1,000 unit) Tablet
1,000 unit PO DAILY Qty: 0 0RF
multivitamin with folic acid [Tab-A-Lawrence] 400 mcg Tablet
1 tab PO DAILY Qty: 0 0RF
Discharge Orders:
Discharge Patient (As Directed); Ordered 10/30/23
Ordered By: Agnes Miller
Discharge Date and Time
Discharge Date/Time: 10/30/23 11:26
== END 2023-10-30 11:26 | disposition hospice, home (50) | DRG 291 ==
LOC: 4 WEST ACU 23:55
PROVIDERS: Clinical Nurse Specialist Family Health; ADMITTING PHYSICIAN Hospitalist; ATTENDING PHYSICIAN Internal Medicine; EMERGENCY PHYSICIAN Emergency Medicine; FAMILY PHYSICIAN Internal Medicine
DX: I13.2 Hypertensive heart and chronic kidney disease with heart failure and with stage 5 chronic kidney disease, or end stage renal disease (principal); I50.33 Acute on chronic diastolic (congestive) heart failure; J18.9 Pneumonia, unspecified organism; J96.01 Acute respiratory failure with hypoxia; N18.6 End stage renal disease; J44.0 Chronic obstructive pulmonary disease with (acute) lower respiratory infection; I48.21 Permanent atrial fibrillation; I5A Non-ischemic myocardial injury (non-traumatic); I25.10 Atherosclerotic heart disease of native coronary artery without angina pectoris; M10.9 Gout, unspecified; R73.03 Prediabetes; D64.9 Anemia, unspecified; Z51.5 Encounter for palliative care; Z11.52 Encounter for screening for COVID-19; Z87.891 Personal history of nicotine dependence; Z95.0 Presence of cardiac pacemaker; Z95.1 Presence of aortocoronary bypass graft; Z86.73 Personal history of transient ischemic attack (TIA), and cerebral infarction without residual deficits; Z85.828 Personal history of other malignant neoplasm of skin; Z79.01 Long term (current) use of anticoagulants; Z95.3 Presence of xenogenic heart valve; Z86.79 Personal history of other diseases of the circulatory system; Z66 Do not resuscitate
CPT/HCPCS: 71046; 80048; 80053; 83880; 84484; 85025; 85027; 85610; 87502; 87811; 93005; 96374; 96375; 99285